=== PATIENT | female | born 1995 | race Caucasian/White ===

== ENCOUNTER → 2023-09-14 | Outpatient (CLI) | payer BC | END | disposition home or self-care (01) | LOC: LABWHC1 10:28 | DX: Z00.00 Encounter for general adult medical examination without abnormal findings (principal); Z20.2 Contact with and (suspected) exposure to infections with a predominantly sexual mode of transmission; Z11.1 Encounter for screening for respiratory tuberculosis; D50.0 Iron deficiency anemia secondary to blood loss (chronic); R53.83 Other fatigue; E55.9 Vitamin D deficiency, unspecified; R74.01 Elevation of levels of liver transaminase levels | CPT/HCPCS: 36415; 86480 ==